=== PATIENT | female | born 1965 | race Caucasian/White ===

== ENCOUNTER 2019-11-11 19:04 | Emergency (ER) | payer OTHER ==
[~2019-11-11] VITALS: Ht 162.6 cm; Wt 61.2 kg
[2019-11-11] MEDS ORDERED: JARDIANCE25 MG PO (19:23)
[2019-11-11] MEDS ORDERED: GLUCOPHAGE1000 MG PO (19:23)
[2019-11-11] MEDS ORDERED: ATORVASTATIN PO (19:24)
[2019-11-11] MEDS ORDERED: LISINOPRIL PO (19:24)
[2019-11-11 19:49] LABS: HEMATOCRIT 47.1 % (37.0-47.0); MCH 31.6 pg (26.0-34.0); PLATELET COUNT 131 thou/uL (150-400); RBC 5.07 mil/uL (4.20-5.00); RDW 13.2 % (10.5-14.5); WBC 28.4 thou/uL (4.0-11.0)
[2019-11-11 20:00] LABS: ANION GAP 13 mmol/L (7-16); BUN 18 mg/dL (7-18); CALCIUM 10.2 mg/dL (8.5-10.1); CHLORIDE 97 mmol/L (98-107); CO2 25 mmol/L (21-32); CREATININE 0.8 mg/dL (0.6-1.0); GLUCOSE 176 mg/dL (74-106); POTASSIUM 4.2 mmol/L (3.5-5.1); SODIUM 135 mmol/L (136-145)
[2019-11-11 20:10] LABS: ALBUMIN 4.6 g/dL (3.4-5.0); LIPASE 119 U/L (73-393); SGOT 31 U/L (15-37); SGPT 42 U/L (30-65); TOTAL BILIRUBIN 0.7 mg/dL (0.2-1.0); TOTAL PROTEIN 8.3 g/dL (6.4-8.2); TROPONIN-I <0.06 ng/mL (<0.06)
[2019-11-11 20:33] LABS: ABSOLUTE NEUTROPHILS 24.1 thou/uL (1.4-8.2)
[2019-11-11 20:34] LABS: ANISOCYTOSIS 1+
[2019-11-11 21:45] LABS: BE(vivo) -2.8 mmol/L (-2 to +3); PCO2 19.7 mmHg (35.0-45.0); PO2 110.9 mmHg (80.0-100.0); pH 7.554 (7.360-7.450); sO2 98.6 % (92.0-98.0)
[2019-11-11] MEDS ORDERED: HYDROXYCHLOROQ200 M1 PO (22:03)
[2019-11-11 23:20] LABS: URINE BILIRUBIN NEGATIVE (Negative); URINE BLOOD NEGATIVE (Negative); URINE CLARITY CLEAR; URINE COLOR YELLOW; URINE GLUCOSE-RANDOM* 3+ (Negative); URINE KETONES 1+ (Negative); URINE LEUKOCYTES-REFLEX TRACE (Negative); URINE NITRITE-REFLEX NEGATIVE (Negative); URINE PROTEIN (DIPSTICK) TRACE (Negative); URINE SPECIFIC GRAVITY 1.025 (1.005-1.035); URINE UROBILINOGEN 0.2 E.U./dl (0.2-1.0)
[2019-11-12] MEDS ORDERED: PRILOSEC OTC20 MG PO (01:02)
[2019-11-12] MEDS ORDERED: ONDANSETRON ODT8 MG PO (01:02)
[2019-11-12 02:22] LABS: CALCIUM 8.3 mg/dL (8.5-10.1); CREATININE 0.8 mg/dL (0.6-1.0); POTASSIUM 4.2 mmol/L (3.5-5.1)
[2019-11-12 04:19] VITALS: BP 107/35
--- NOTE | 2019-11-13 07:46 | EKG ---
[facility] [place] [address] ELECTROCARDIOGRAM REPORT Name: EVAN LOUIS Room #: DEP [facility]#: [id number] Admission: 11/11/19 Attend Phys: Discharge: 11/12/19 Date of : 69 Report #: [id number] THIS REPORT FOR: cc: KAYLEIGH - [facility] physician/PCP KAYLEIGH - [facility] family physician/PCP Wyatt Thao MD [facility] THIS REPORT FOR: //name// [facility] ED Test Date: 2019-11-11 Test Time: 19:56:36 Pat Name: EVAN LOUIS Department: Room: Gender: F [employer]: : 1965 Requested By: Zoe Malin Order Number: [id number] MD: Wyatt Thao Measurements Intervals [place] Rate: 116 P: 260 ID: [id number] QRS: -23 QRSD: 121 T: 66 QT: 410 QTc: 570 Interpretive Statements Sinus tachycardia Prolonged ID interval Poor R wave progression Nonspecific ST and T wave abnormality Prolonged QT interval No previous ECG available for comparison Electronically Signed On 11-13-2019 7:46:21 CDT by Wyatt Thao [email or web address] <ELECTRONICALLY SIGNED> By: Wyatt Thao MD, [facility] 11/13/19 [id number] Wyatt Thao MD, [facility] /EPI
== END 2019-11-12 04:38 | disposition home or self-care (01) ==
LOC: ER 19:04
PROVIDERS: Emergency Medicine; Physician Assistant
DX: R65.10 Systemic inflammatory response syndrome (SIRS) of non-infectious origin without acute organ dysfunction (principal); R11.2 Nausea with vomiting, unspecified; D72.829 Elevated white blood cell count, unspecified; Z20.828 Contact with and (suspected) exposure to other viral communicable diseases; Z79.899 Other long term (current) drug therapy